=== PATIENT | female | born 1960 | race Two or more races ===

== ENCOUNTER 2023-10-05 23:06 | Emergency (ER) | payer OTHER ==
[~2023-10-05] VITALS: Ht 160 cm; Wt 88.0 kg
[~2023-10-05 23:06] MED LIST: NORVASC5 MG
[2023-10-06] MEDS ORDERED: DRAMAMINE LESS25 MG PO (00:56)
[2023-10-06] MEDS ORDERED: AMOX-CLAV 875-1 EACH PO (00:56)
[2023-10-06] MEDS ORDERED: MECLIZINE HCL 25 MG TABLET PO ONE (01:00)
[2023-10-06] MEDS ORDERED: CEFTRIAXONE SODIUM 1,000 MG VIAL IM ONE (01:00)
== END 2023-10-06 01:05 | disposition home or self-care (01) ==
LOC: ER
DX: R42 Dizziness and giddiness (principal); H66.90 Otitis media, unspecified, unspecified ear

== ENCOUNTER 2023-11-13 08:26 | Emergency (ER) | payer OTHER ==
[~2023-11-13] VITALS: Ht 160 cm; Wt 89.8 kg
[~2023-11-13 08:26] MED LIST changes: +AMOX-CLAV 875-1 EACH PO; +DRAMAMINE LESS25 MG PO
[2023-11-13] MEDS ORDERED: ACETAMINOPHEN 500 MG GEL..CAP PO STA (09:54)
== END 2023-11-13 13:13 | disposition home or self-care (01) ==
LOC: ER 08:26
DX: B34.9 Viral infection, unspecified (principal); I10 Essential (primary) hypertension; Z20.822 Contact with and (suspected) exposure to COVID-19

== ENCOUNTER 2025-06-11 18:54 | Emergency (ER) | payer OTHER ==
[~2025-06-11] VITALS: Ht 160 cm; Wt 88.5 kg
[~2025-06-11 18:54] MED LIST changes: +AMLODIPINE-OLM1 EAC2 PO; +BRINZOLAMIDE15 ML; +COZAAR50 MG PO; +ROSUVASTATIN CA20 MG PO; +XELPROS2.5 ML
[2025-06-11] MEDS ORDERED: ORPHENADRINE CITRATE 30 MG/ML AMPUL IM STA (20:21)
[2025-06-11] MEDS ORDERED: KETOROLAC TROMETHAMINE 30 MG VIAL IM STA (20:21)
[2025-06-11 22:13] LABS: BASO % 0.5 % (0.1-1.2); EOS # 0.32 (0.04-0.54); EOS % 2.9 % (0.7-7.0); LYMPH # 4.53 (1.18-3.74); LYMPH % 41.3 % (19.3-53.1); MEAN PLATELET VOLUME 9.20 fl (9.4-12.4); MONO # 0.65 (0.24-0.82); MONO % 5.9 % (4.7-12.5); NEUT # 5.36 (1.56-6.13); NEUT % 49.0 % (34.0-71.1); RED CELL DISTRIBUTION WIDTH 12.6 % (11.6-14.4)
[2025-06-11 22:35] LABS: ALT/SGPT 34.0 U/L (12-78); AST/SGOT 22.0 U/L (15-37); BILIRUBIN TOTAL 0.37 mg/dL (0.3-1.2); BUN CREA RATIO 14.0 (7.0-25.0); CREATININE SERUM 0.72 mg/dL (0.55-1.02); GFR 81.04; GLOBULINA 3.9 G/DL (2.4-3.5); GLUCOSE FASTING 128.0 mg/dL (65-100); OSMOLALITY SERUM 288.0 MOSM/KG (275-295)
== END 2025-06-11 23:25 | disposition home or self-care (01) ==
LOC: ER 18:54
PROVIDERS: General Practice
DX: R06.02 Shortness of breath (principal); I10 Essential (primary) hypertension
CPT/HCPCS: 36415; 96372; 99282; J1885; J2360